=== PATIENT | female | born 1950 | race Caucasian/White ===

== ENCOUNTER 2020-02-21 16:17 | Inpatient (IN) ==
[2020-02-21] MEDS ORDERED: Ondansetron 4 MG/2 ML VIAL IVP PRN (20:03)
[2020-02-21] MEDS ORDERED: Naloxone 0.4 MG/ML INJ IVP PRN (20:03)
[2020-02-21] MEDS ORDERED: Perflutren Lipid Microsphere 1.3 ML in 0.9 % Sodium Chloride 8.7 ML IVP PRN (20:48)
[2020-02-22 01:58] LABS: INR 1.2; Prothrombin Time 13.5 Seconds (9.4-12.1)
[2020-02-22 01:59] LABS: Basophils % 0.7 %; Eosinophils # 0.2 K/mcL (0.0-0.6); Eosinophils % 2.9 %; Hematocrit 40.8 % (35.3-44.9); Hemoglobin 13.4 g/dL (11.5-15.4); Immature Granulocytes % 0.4 % (0-4); Lymphocytes # 1.6 K/mcL (0.6-4.6); Lymphocytes % 29.8 %; Mean Corpuscular HGB Conc 32.8 g/dL (31.6-35.5); Mean Corpuscular Volume 91.3 fL (83.0-100.0); Mean Platelet Volume 9.6 fL (9.4-12.4); Monocytes # 0.6 K/mcL (0.0-1.3); Monocytes % 10.3 %; Platelet Count 256 K/mcL (140-400); Red Blood Count 4.47 M/mcL (3.82-4.97); Red Cell Distribution Width 12.9 % (11.5-14.5); Segmented Neutrophils % 55.9 %; White Blood Count 5.4 K/mcL (4.3-11.1)
[2020-02-22 02:13] LABS: Albumin 3.7 g/dL (3.5-5.7); Albumin/Globulin Ratio 1.4 (1.1-2.2); Bilirubin,Total 0.5 mg/dL (0.3-1.0); Globulin 2.6 g/dL (2.4-3.5); Total Protein 6.3 g/dL (6.4-8.9)
[2020-02-22 02:14] LABS: BUN/Creatinine Ratio 18 (6-26); Blood Urea Nitrogen 14 mg/dL (8-23); Calcium 8.9 mg/dL (8.6-10.3); Carbon Dioxide 28 mEq/L (23-29); Chloride 107 mEq/L (98-107); Glucose 130 mg/dL (70-105); Osmolality,Calculated 292 (280-300); Potassium 3.1 mEq/L (3.5-5.1); Sodium 140 mEq/L (136-145); eGFR For African Americans > 60 (> 60); eGFR For Non-African Americans > 60 (> 60)
[2020-02-22] MEDS: *HR* Heparin 5,000 UNIT/ML VIAL SQ SCH ×2 (04:03→16:52)
[2020-02-22] MEDS ORDERED: Albuterol 2.5 MG/3 ML NEBULIZER IH PRN (08:19)
[2020-02-22] MEDS: lisinopriL 20 MG TABLET PO SCH (10:49)
[2020-02-22] MEDS: Levothyroxine 25 MCG TABLET PO SCH (10:49)
[2020-02-22 11:46] LABS: Albumin 4.2 g/dL (3.5-5.7); Albumin/Globulin Ratio 1.4 (1.1-2.2); Bilirubin,Direct 0.1 mg/dL (0.0-0.2); Bilirubin,Indirect 0.7 mg/dL (0.0-1.0); Bilirubin,Total 0.8 mg/dL (0.3-1.0); Globulin 2.9 g/dL (2.4-3.5); Total Protein 7.1 g/dL (6.4-8.9)
[2020-02-22 16:40] LABS: RBC,Pleural Fluid < 2000 RBC/mcL
[2020-02-22 16:43] LABS: Total Protein,Pleural Fluid 4.6 g/dL
[2020-02-22 18:10] LABS: Appearance of Pleural Fl Clear (Clear)
[2020-02-22 18:18] LABS: Basophils,Pleural Fluid 0 %; Eosinophils,Pleural Fluid 0 %
[2020-02-22] MEDS ORDERED: Gadolinium Contrast Agent (WT Based) IV PRN (18:18)
[2020-02-22] MEDS: cloNIDine HCL 0.1 MG TABLET PO SCH (19:47)
[2020-02-23] MEDS: *HR* Heparin 5,000 UNIT/ML VIAL SQ SCH ×2 (05:31→16:49)
[2020-02-23] MEDS: Levothyroxine 25 MCG TABLET PO SCH (05:31)
[2020-02-23 06:52] LABS: Basophils % 0.9 %; Eosinophils # 0.2 K/mcL (0.0-0.6); Eosinophils % 4.7 %; Hematocrit 41.6 % (35.3-44.9); Hemoglobin 13.5 g/dL (11.5-15.4); Immature Granulocytes % 0.4 % (0-4); Lymphocytes # 1.6 K/mcL (0.6-4.6); Lymphocytes % 35.6 %; Mean Corpuscular HGB Conc 32.5 g/dL (31.6-35.5); Mean Corpuscular Hemoglobin 29.9 pg (28.0-33.3); Mean Corpuscular Volume 92.2 fL (83.0-100.0); Mean Platelet Volume 9.5 fL (9.4-12.4); Monocytes # 0.5 K/mcL (0.0-1.3); Monocytes % 11.1 %; Neutrophils # 2.1 K/mcL (1.6-8.9); Platelet Count 240 K/mcL (140-400); Red Blood Count 4.51 M/mcL (3.82-4.97); Red Cell Distribution Width 12.9 % (11.5-14.5); Segmented Neutrophils % 47.3 %; White Blood Count 4.5 K/mcL (4.3-11.1)
[2020-02-23] MEDS: lisinopriL 20 MG TABLET PO SCH (07:42)
[2020-02-23 09:59] LABS: BUN/Creatinine Ratio 23 (6-26); Blood Urea Nitrogen 16 mg/dL (8-23); Calcium 9.7 mg/dL (8.6-10.3); Carbon Dioxide 28 mEq/L (23-29); Chloride 105 mEq/L (98-107); Glucose 118 mg/dL (70-105); Magnesium 2.2 mg/dL (1.6-2.6); Osmolality,Calculated 290 (280-300); Phosphorous 3.2 mg/dL (2.7-4.5); Potassium 3.5 mEq/L (3.5-5.1); Sodium 139 mEq/L (136-145); eGFR For African Americans > 60 (> 60); eGFR For Non-African Americans > 60 (> 60)
[2020-02-23] MEDS: cloNIDine HCL 0.1 MG TABLET PO SCH (20:11)
[2020-02-24] MEDS: Levothyroxine 25 MCG TABLET PO SCH (05:44)
[2020-02-24] MEDS: *HR* Heparin 5,000 UNIT/ML VIAL SQ SCH ×2 (05:44→17:23)
[2020-02-24] MEDS ORDERED: Gabapentin 300 MG CAPSULE PO PRN (07:49)
[2020-02-24] MEDS: Cyanocobalamin (B-12) 1,000 MCG TABLET PO SCH (08:38)
[2020-02-24] MEDS: lisinopriL 20 MG TABLET PO SCH (08:38)
[2020-02-24] MEDS: cloNIDine HCL 0.1 MG TABLET PO SCH (20:02)
[2020-02-25 03:06] LABS: Basophils # 0.1 K/mcL (0.0-0.2); Basophils % 0.9 %; Eosinophils # 0.2 K/mcL (0.0-0.6); Eosinophils % 3.9 %; Hematocrit 38.6 % (35.3-44.9); Hemoglobin 12.7 g/dL (11.5-15.4); Immature Granulocytes % 0.2 % (0-4); Lymphocytes # 1.8 K/mcL (0.6-4.6); Lymphocytes % 32.8 %; Mean Corpuscular HGB Conc 32.9 g/dL (31.6-35.5); Mean Corpuscular Hemoglobin 30.5 pg (28.0-33.3); Mean Corpuscular Volume 92.8 fL (83.0-100.0); Mean Platelet Volume 9.8 fL (9.4-12.4); Monocytes # 0.5 K/mcL (0.0-1.3); Neutrophils # 2.8 K/mcL (1.6-8.9); Platelet Count 243 K/mcL (140-400); Red Blood Count 4.16 M/mcL (3.82-4.97); Red Cell Distribution Width 12.7 % (11.5-14.5); Segmented Neutrophils % 52.2 %; White Blood Count 5.4 K/mcL (4.3-11.1)
[2020-02-25 03:26] LABS: BUN/Creatinine Ratio 28 (6-26); Blood Urea Nitrogen 16 mg/dL (8-23); Calcium 8.9 mg/dL (8.6-10.3); Carbon Dioxide 25 mEq/L (23-29); Chloride 108 mEq/L (98-107); Glucose 96 mg/dL (70-105); Osmolality,Calculated 291 (280-300); Phosphorous 3.5 mg/dL (2.7-4.5); Potassium 3.7 mEq/L (3.5-5.1); Sodium 140 mEq/L (136-145); eGFR For African Americans > 60 (> 60); eGFR For Non-African Americans > 60 (> 60)
[2020-02-25] MEDS: Levothyroxine 25 MCG TABLET PO SCH (05:47)
[2020-02-25] MEDS: *HR* Heparin 5,000 UNIT/ML VIAL SQ SCH ×2 (05:47→18:00)
[2020-02-25] MEDS: Cyanocobalamin (B-12) 1,000 MCG TABLET PO SCH (07:22)
[2020-02-25 10:49] LABS: Fluid Source for Albumin PLEURAL FLUID
[2020-02-25] MEDS: lisinopriL 20 MG TABLET PO SCH (11:08)
[2020-02-25] MEDS ORDERED: *HR* Rocuronium Bromide 50 MG/5 ML VIAL ONE (11:31)
[2020-02-25] MEDS ORDERED: *HR* FentaNYL (PF) 100 MCG/2 ML VIAL ONE (11:31)
[2020-02-25] MEDS ORDERED: Ondansetron 4 MG/2 ML VIAL ONE (11:31)
[2020-02-25] MEDS ORDERED: Lidocaine -MPF 2% 2 ML VIAL ONE (11:31)
[2020-02-25] MEDS ORDERED: *HR* Propofol 200 MG/20 ML VIAL IVP ONE (11:31)
[2020-02-25] MEDS ORDERED: Dexamethasone 4 MG/ML VIAL ONE (11:31)
[2020-02-25] MEDS ORDERED: Lidocaine -MPF 4% 5 ML AMPUL ONE (11:44)
[2020-02-25] MEDS ORDERED: Lidocaine Jelly 6ml 1 APPL/6 ML JEL.PF.APP ONE (11:44)
[2020-02-25] MEDS ORDERED: CeFAZolin 2 GM/120 ML BAG IVPB ONE (12:22)
[2020-02-25] MEDS ORDERED: *HR* OxyCODONE Immed Rel 5 MG TABLET PO PRN (12:36)
[2020-02-25] MEDS ORDERED: Ondansetron 4 MG/2 ML VIAL IVP ONE (12:36)
[2020-02-25] MEDS ORDERED: *HR* PHENYLEPHRINE 1,000 MCG/10 ML SYRINGE IVP ONE (12:51)
[2020-02-25] MEDS ORDERED: *HR* HYDROMORPHONE 2 MG/ML VIAL ONE (12:58)
[2020-02-25] MEDS: *HR* HYDROmorphone PF 0.5 MG/0.5 ML SYRINGE IVP PRN ×2 (13:42→13:51)
[2020-02-25] MEDS ORDERED: Ringers Solution, Lactated 1,000 ML ONE (14:05)
[2020-02-25] MEDS ORDERED: Naloxone 0.4 MG/ML INJ IVP PRN (14:27)
[2020-02-25] MEDS ORDERED: Ondansetron 4 MG/2 ML VIAL IVP PRN (14:27)
[2020-02-25] MEDS ORDERED: Albuterol 2.5 MG/3 ML NEBULIZER IH PRN (14:27)
[2020-02-25] MEDS: Gabapentin 300 MG CAPSULE PO SCH ×2 (15:58→20:29)
[2020-02-25] MEDS: *HR* HYDROcodone/Acet 5/325 mg TABLET PO PRN (18:00)
[2020-02-25] MEDS ORDERED: cloNIDine HCL 0.1 MG TABLET PO SCH (21:00)
[2020-02-26] MEDS ORDERED: Levothyroxine 25 MCG TABLET PO SCH (06:30)
[2020-02-26] MEDS: *HR* Heparin 5,000 UNIT/ML VIAL SQ SCH (06:50)
[2020-02-26] MEDS: *HR* HYDROcodone/Acet 5/325 mg TABLET PO PRN (07:47)
[2020-02-26] MEDS: Gabapentin 300 MG CAPSULE PO SCH (07:47)
[2020-02-26] MEDS ORDERED: lisinopriL 20 MG TABLET PO SCH (09:00)
[2020-02-26] MEDS ORDERED: Cyanocobalamin (B-12) 1,000 MCG TABLET PO SCH (09:00)
[2020-02-26 11:27] VITALS: BP 89/59
[2020-02-27 08:41] LABS: Cancer Antigen-Breast (CA 15-3 29 U/mL (0-31); Cancer Antigen-GI (CA 19-9) 6 U/mL (0-37)
== END 2020-02-26 16:30 | disposition home health service (06) | DRG 167 ==
LOC: 2ANU → SUATTDRO 19:38 → 2ANU 02-23 17:13 → 2NNU 02-25 15:03
PROVIDERS: ADMIT Internal Medicine; ATTEND Internal Medicine

== ENCOUNTER 2020-06-19 06:07 | Inpatient (IN) ==
[~2020-06-19 06:07] MED LIST: Famotidine 20 MG/2 ML VIAL IVP ONE
[2020-06-19] MEDS ORDERED: CeFAZolin Syr 2,000MG/20 ML 2,000 MG/20 ML SYRINGE IVPB ONE (06:26)
[2020-06-19] MEDS ORDERED: Ringers Solution, Lactated 1,000 ML IVC SCH (06:30)
[2020-06-19] MEDS ORDERED: 0.9 % Sodium Chloride 250 ML IVC SCH (07:00)
[2020-06-19] MEDS ORDERED: 0.9 % Sodium Chloride 1,000 ML IVC ONE (07:00)
[2020-06-19] MEDS ORDERED: *HR* Propofol 200 MG/20 ML VIAL IVP ONE (07:03)
[2020-06-19] MEDS ORDERED: *HR* FentaNYL (PF) 100 MCG/2 ML VIAL ONE ×2 (07:03→11:09)
[2020-06-19] MEDS ORDERED: EPHEDrine 50 MG/ML VIAL ONE (07:06)
[2020-06-19] MEDS ORDERED: *HR* Succinylcholine 200 MG/10 ML VIAL IVP ONE (07:07)
[2020-06-19] MEDS ORDERED: Lidocaine -MPF 2% 2 ML VIAL ONE (07:07)
[2020-06-19] MEDS ORDERED: Dexamethasone 4 MG/ML VIAL ONE (07:07)
[2020-06-19] MEDS ORDERED: Ondansetron 4 MG/2 ML VIAL ONE (07:07)
[2020-06-19] MEDS ORDERED: *HR* Rocuronium Bromide 50 MG/5 ML VIAL ONE ×2 (07:07→08:55)
[2020-06-19] MEDS ORDERED: Lidocaine HCL 4 ML Topical Solution (Laryng-O-Jet Kit Sterile Pak) TP ONE (07:07)
[2020-06-19] MEDS ORDERED: Heparin 1,000 UNITS/500 mL 500 ML ONE (07:19)
[2020-06-19] MEDS ORDERED: *HR* Phenylephrine 10 MG/ML VIAL ONE (07:20)
[2020-06-19] MEDS ORDERED: *HR* Vasopressin 20 UNIT/ML VIAL ONE (07:26)
[2020-06-19] MEDS ORDERED: Albumin Human 5% 25.0 GM/500 ML IV.SOLN ONE ×2 (07:26→10:02)
[2020-06-19] MEDS ORDERED: *HR* Norepinephrine 4 MG/4 ML VIAL IVC ONE (07:26)
[2020-06-19] MEDS ORDERED: Naloxone 0.4 MG/ML INJ IVP PRN ×2 (07:46→12:15)
[2020-06-19] MEDS ORDERED: Nitroglycerin 0.4 MG TAB.SUBL SL PRN (07:46)
[2020-06-19] MEDS ORDERED: *HR* HYDROmorphone PF 0.5 MG/0.5 ML SYRINGE IVP PRN (07:46)
[2020-06-19] MEDS ORDERED: *HR* FentaNYL (PF) 100 MCG/2 ML VIAL IVP PRN (07:46)
[2020-06-19] MEDS ORDERED: Albuterol 2.5 MG/3 ML NEBULIZER IH PRN (07:46)
[2020-06-19] MEDS ORDERED: *HR* PHENYLEPHRINE 1,000 MCG/10 ML SYRINGE IVP ONE (07:49)
[2020-06-19] MEDS ORDERED: Tranexamic Acid 1,000 MG/10 ML VIAL ONE (09:47)
[2020-06-19 10:47] LABS: ABG Base Excess -2 mEq/L (-2 to 3); ABG Chloride 106 mEq/L (98-107); ABG Glucose 155 mg/dL (60-95); ABG HCO3 23 mEq/L (21-27); ABG Ionized Calcium 0.99 mmol/L (1.15-1.35); ABG Oxygen Saturation 100 % (95-98); ABG PCO2 39 mmHg (35-45); ABG PH 7.39 pH Units (7.32-7.45); ABG PO2 255 mmHg (85-104); ABG TCO2 24 mEq/L (20-26)
[2020-06-19 11:09] LABS: INR 1.3; Prothrombin Time 14.8 Seconds (9.4-12.1)
[2020-06-19 11:11] LABS: Activated Partial Thrombo Time 29.4 Seconds (26.0-36.0)
[2020-06-19 11:13] LABS: Basophils # 0.1 K/mcL (0.0-0.2); Basophils % 0.5 %; Eosinophils % 0.1 %; Hematocrit 22.3 % (35.3-44.9); Immature Granulocytes % 0.5 % (0-4); Lymphocytes # 1.1 K/mcL (0.6-4.6); Lymphocytes % 9.4 %; Mean Corpuscular HGB Conc 33.6 g/dL (31.6-35.5); Mean Corpuscular Hemoglobin 32.9 pg (28.0-33.3); Mean Corpuscular Volume 97.8 fL (83.0-100.0); Mean Platelet Volume 9.2 fL (9.4-12.4); Monocytes # 0.4 K/mcL (0.0-1.3); Monocytes % 3.2 %; Neutrophils # 10.3 K/mcL (1.6-8.9); Platelet Count 197 K/mcL (140-400); Red Blood Count 2.28 M/mcL (3.82-4.97); Red Cell Distribution Width 16.6 % (11.5-14.5); Segmented Neutrophils % 86.3 %
[2020-06-19 11:17] LABS: Hemoglobin 7.5 g/dL (11.5-15.4); White Blood Count 11.9 K/mcL (4.3-11.1)
[2020-06-19] MEDS ORDERED: Ketorolac 15 MG/ML VIAL IVP SCH (12:15)
[2020-06-19] MEDS ORDERED: Ondansetron 4 MG/2 ML VIAL IVP PRN (12:15)
[2020-06-19] MEDS: 0.9 % Sodium Chloride 1,000 ML IVC SCH (13:00)
[2020-06-19] MEDS: *HR* HYDROcodone/Acet 7.5/325 mg TABLET PO PRN ×2 (13:13→20:35)
[2020-06-19] MEDS: Ipratropium/Albuterol Neb 3 ML IH SCH ×4 (16:30→23:18)
[2020-06-19] MEDS: *HR* Heparin 5,000 UNIT/ML VIAL SQ SCH ×2 (16:42→20:35)
[2020-06-19] MEDS: Gabapentin 300 MG CAPSULE PO SCH ×2 (16:43→20:34)
[2020-06-19 16:57] LABS: Hematocrit 27.5 % (35.3-44.9); Mean Corpuscular HGB Conc 33.1 g/dL (31.6-35.5); Mean Corpuscular Hemoglobin 30.7 pg (28.0-33.3); Mean Corpuscular Volume 92.9 fL (83.0-100.0); Mean Platelet Volume 9.3 fL (9.4-12.4); Platelet Count 148 K/mcL (140-400); Red Blood Count 2.96 M/mcL (3.82-4.97); Red Cell Distribution Width 18.7 % (11.5-14.5); White Blood Count 10.1 K/mcL (4.3-11.1)
[2020-06-19 17:08] LABS: Hemoglobin 9.1 g/dL (11.5-15.4)
[2020-06-19 17:17] LABS: BUN/Creatinine Ratio 15 (6-26); Blood Urea Nitrogen 9 mg/dL (8-23); Calcium 6.6 mg/dL (8.6-10.3); Carbon Dioxide 17 mEq/L (23-29); Chloride 114 mEq/L (98-107); Glucose 159 mg/dL (70-105); Magnesium 1.5 mg/dL (1.6-2.6); Osmolality,Calculated 304 (280-300); Phosphorous 10.1 mg/dL (2.7-4.5); Potassium 3.1 mEq/L (3.5-5.1); Sodium 146 mEq/L (136-145); eGFR For African Americans > 60 (> 60); eGFR For Non-African Americans > 60 (> 60)
[2020-06-19] MEDS: Ketorolac 15 MG/ML VIAL IVP SCH (18:33)
[2020-06-19] MEDS: Famotidine 20 MG TABLET PO SCH (20:34)
[2020-06-19] MEDS: Sennosides/Docusate Sodium TABLET PO SCH (20:34)
[2020-06-19] MEDS ORDERED: cloNIDine HCL 0.1 MG TABLET PO SCH (21:00)
[2020-06-20] MEDS: Ketorolac 15 MG/ML VIAL IVP SCH ×4 (00:53→18:19)
[2020-06-20] MEDS: 0.9 % Sodium Chloride 1,000 ML IVC SCH ×2 (01:49→17:08)
[2020-06-20] MEDS: Ipratropium/Albuterol Neb 3 ML IH SCH ×2 (03:11→07:22)
[2020-06-20] MEDS: *HR* HYDROcodone/Acet 7.5/325 mg TABLET PO PRN (03:45)
[2020-06-20 04:26] LABS: Albumin 3.2 g/dL (3.5-5.7); Bilirubin,Direct 0.2 mg/dL (0.0-0.2); Bilirubin,Indirect 0.4 mg/dL (0.0-1.0); Bilirubin,Total 0.6 mg/dL (0.3-1.0); Globulin 1.6 g/dL (2.4-3.5); Total Protein 4.8 g/dL (6.4-8.9)
[2020-06-20 04:55] LABS: BUN/Creatinine Ratio 16 (6-26); Blood Urea Nitrogen 10 mg/dL (8-23); Calcium 7.7 mg/dL (8.6-10.3); Carbon Dioxide 22 mEq/L (23-29); Chloride 110 mEq/L (98-107); Glucose 147 mg/dL (70-105); Magnesium 2.6 mg/dL (1.6-2.6); Osmolality,Calculated 286 (280-300); Phosphorous 2.8 mg/dL (2.7-4.5); Sodium 137 mEq/L (136-145); eGFR For African Americans > 60 (> 60); eGFR For Non-African Americans > 60 (> 60)
[2020-06-20] MEDS: *HR* Heparin 5,000 UNIT/ML VIAL SQ SCH ×3 (06:50→21:00)
[2020-06-20] MEDS ORDERED: Levothyroxine 25 MCG TABLET PO SCH (07:30)
[2020-06-20] MEDS: Sennosides/Docusate Sodium TABLET PO SCH ×2 (08:03→20:01)
[2020-06-20] MEDS: Gabapentin 300 MG CAPSULE PO SCH ×3 (08:03→20:05)
[2020-06-20] MEDS: Famotidine 20 MG TABLET PO SCH ×2 (08:03→20:02)
[2020-06-20] MEDS ORDERED: Naloxone 0.4 MG/ML INJ IVP PRN (11:56)
[2020-06-20] MEDS ORDERED: Ondansetron 4 MG/2 ML VIAL IVP PRN (11:56)
[2020-06-20] MEDS ORDERED: *HR* HYDROcodone/Acet 7.5/325 mg TABLET PO PRN (11:56)
[2020-06-20 14:38] LABS: Basophils % 0.4 %; Hematocrit 27.3 % (35.3-44.9); Hemoglobin 8.9 g/dL (11.5-15.4); Immature Granulocytes % 0.4 % (0-4); Lymphocytes # 0.9 K/mcL (0.6-4.6); Lymphocytes % 7.8 %; Mean Corpuscular HGB Conc 32.6 g/dL (31.6-35.5); Mean Corpuscular Hemoglobin 30.7 pg (28.0-33.3); Mean Corpuscular Volume 94.1 fL (83.0-100.0); Mean Platelet Volume 9.9 fL (9.4-12.4); Monocytes # 1.2 K/mcL (0.0-1.3); Monocytes % 10.6 %; Neutrophils # 9.1 K/mcL (1.6-8.9); Platelet Count 169 K/mcL (140-400); Red Cell Distribution Width 20.2 % (11.5-14.5); Segmented Neutrophils % 80.8 %; White Blood Count 11.3 K/mcL (4.3-11.1)
[2020-06-20] MEDS: cloNIDine HCL 0.1 MG TABLET PO SCH (20:02)
[2020-06-21] MEDS: Ketorolac 15 MG/ML VIAL IVP SCH ×5 (00:58→23:03)
[2020-06-21] MEDS: 0.9 % Sodium Chloride 1,000 ML IVC SCH ×3 (00:59→23:05)
[2020-06-21] MEDS: Levothyroxine 25 MCG TABLET PO SCH (05:31)
[2020-06-21] MEDS: *HR* Heparin 5,000 UNIT/ML VIAL SQ SCH ×3 (05:31→20:00)
[2020-06-21] MEDS: Famotidine 20 MG TABLET PO SCH ×2 (08:16→20:01)
[2020-06-21] MEDS: Sennosides/Docusate Sodium TABLET PO SCH ×2 (08:16→20:00)
[2020-06-21] MEDS: Gabapentin 300 MG CAPSULE PO SCH ×3 (08:16→20:01)
[2020-06-21 09:29] LABS: Hematocrit 28.3 % (35.3-44.9); Hemoglobin 8.9 g/dL (11.5-15.4); Mean Corpuscular HGB Conc 31.4 g/dL (31.6-35.5); Mean Corpuscular Hemoglobin 30.7 pg (28.0-33.3); Mean Corpuscular Volume 97.6 fL (83.0-100.0); Mean Platelet Volume 9.9 fL (9.4-12.4); Platelet Count 177 K/mcL (140-400); Red Cell Distribution Width 20.3 % (11.5-14.5); White Blood Count 10.2 K/mcL (4.3-11.1)
[2020-06-21 09:49] LABS: % Iron Saturation 15 % (15-50); BUN/Creatinine Ratio 23 (6-26); Blood Urea Nitrogen 15 mg/dL (8-23); Calcium 8.1 mg/dL (8.6-10.3); Carbon Dioxide 23 mEq/L (23-29); Chloride 108 mEq/L (98-107); Glucose 97 mg/dL (70-105); Iron 25 mcg/dL (50-170); Osmolality,Calculated 281 (280-300); Potassium 3.6 mEq/L (3.5-5.1); Sodium 135 mEq/L (136-145); Transferrin 119 mg/dL (203-362); eGFR For African Americans > 60 (> 60); eGFR For Non-African Americans > 60 (> 60)
[2020-06-21] MEDS: cloNIDine HCL 0.1 MG TABLET PO SCH (20:01)
[2020-06-22] MEDS: *HR* Heparin 5,000 UNIT/ML VIAL SQ SCH ×3 (06:00→21:08)
[2020-06-22] MEDS: Levothyroxine 25 MCG TABLET PO SCH (06:01)
[2020-06-22] MEDS: Ketorolac 15 MG/ML VIAL IVP SCH ×4 (06:01→23:24)
[2020-06-22] MEDS: Gabapentin 300 MG CAPSULE PO SCH ×2 (08:43→19:17)
[2020-06-22] MEDS: Sennosides/Docusate Sodium TABLET PO SCH ×2 (08:43→20:18)
[2020-06-22] MEDS: Famotidine 20 MG TABLET PO SCH ×2 (08:43→20:18)
[2020-06-22] MEDS: 0.9 % Sodium Chloride 1,000 ML IVC SCH (13:21)
[2020-06-22] MEDS ORDERED: Gabapentin 300 MG CAPSULE PO PRN (15:07)
[2020-06-22] MEDS: cloNIDine HCL 0.1 MG TABLET PO SCH (20:18)
[2020-06-23] MEDS: 0.9 % Sodium Chloride 1,000 ML IVC SCH (04:51)
[2020-06-23 05:46] LABS: Basophils % 0.6 %; Eosinophils # 0.1 K/mcL (0.0-0.6); Eosinophils % 1.2 %; Hematocrit 23.5 % (35.3-44.9); Hemoglobin 7.7 g/dL (11.5-15.4); Lymphocytes # 1.1 K/mcL (0.6-4.6); Mean Corpuscular HGB Conc 32.8 g/dL (31.6-35.5); Mean Corpuscular Hemoglobin 31.6 pg (28.0-33.3); Mean Corpuscular Volume 96.3 fL (83.0-100.0); Mean Platelet Volume 9.5 fL (9.4-12.4); Monocytes # 0.5 K/mcL (0.0-1.3); Monocytes % 9.6 %; Neutrophils # 3.2 K/mcL (1.6-8.9); Platelet Count 186 K/mcL (140-400); Red Blood Count 2.44 M/mcL (3.82-4.97); Red Cell Distribution Width 19.2 % (11.5-14.5); Segmented Neutrophils % 65.6 %; White Blood Count 4.9 K/mcL (4.3-11.1)
[2020-06-23] MEDS: *HR* Heparin 5,000 UNIT/ML VIAL SQ SCH ×3 (06:06→21:33)
[2020-06-23] MEDS: Ketorolac 15 MG/ML VIAL IVP SCH ×4 (06:06→19:46)
[2020-06-23 06:07] LABS: BUN/Creatinine Ratio 16 (6-26); Blood Urea Nitrogen 11 mg/dL (8-23); Calcium 7.9 mg/dL (8.6-10.3); Carbon Dioxide 22 mEq/L (23-29); Chloride 112 mEq/L (98-107); Glucose 101 mg/dL (70-105); Magnesium 1.9 mg/dL (1.6-2.6); Osmolality,Calculated 288 (280-300); Potassium 3.8 mEq/L (3.5-5.1); Sodium 139 mEq/L (136-145); eGFR For African Americans > 60 (> 60); eGFR For Non-African Americans > 60 (> 60)
[2020-06-23] MEDS: Levothyroxine 25 MCG TABLET PO SCH (06:07)
[2020-06-23] MEDS: Famotidine 20 MG TABLET PO SCH ×2 (08:19→21:33)
[2020-06-23] MEDS: Sennosides/Docusate Sodium TABLET PO SCH ×2 (08:19→21:33)
[2020-06-23] MEDS ORDERED: Naloxone 0.4 MG/ML INJ IVP PRN (12:21)
[2020-06-23] MEDS ORDERED: Ondansetron 4 MG/2 ML VIAL IVP PRN (12:21)
[2020-06-23] MEDS: *HR* HYDROcodone/Acet 7.5/325 mg TABLET PO PRN (13:54)
[2020-06-23] MEDS: Gabapentin 300 MG CAPSULE PO SCH ×2 (14:02→21:33)
[2020-06-23] MEDS ORDERED: Gabapentin 300 MG CAPSULE PO SCH (15:00)
[2020-06-23] MEDS: cloNIDine HCL 0.1 MG TABLET PO SCH (21:33)
[2020-06-24] MEDS: Ketorolac 15 MG/ML VIAL IVP SCH ×4 (00:04→17:28)
[2020-06-24 05:21] LABS: Hematocrit 25.4 % (35.3-44.9); Hemoglobin 7.9 g/dL (11.5-15.4); Mean Corpuscular HGB Conc 31.1 g/dL (31.6-35.5); Mean Corpuscular Hemoglobin 30.5 pg (28.0-33.3); Mean Corpuscular Volume 98.1 fL (83.0-100.0); Mean Platelet Volume 9.6 fL (9.4-12.4); Platelet Count 205 K/mcL (140-400); Red Blood Count 2.59 M/mcL (3.82-4.97); Red Cell Distribution Width 18.8 % (11.5-14.5); White Blood Count 5.3 K/mcL (4.3-11.1)
[2020-06-24] MEDS: *HR* Heparin 5,000 UNIT/ML VIAL SQ SCH ×3 (05:42→21:14)
[2020-06-24] MEDS: Levothyroxine 25 MCG TABLET PO SCH (05:43)
[2020-06-24 05:44] LABS: % Iron Saturation 25 % (15-50); BUN/Creatinine Ratio 12 (6-26); Blood Urea Nitrogen 8 mg/dL (8-23); Calcium 8.5 mg/dL (8.6-10.3); Carbon Dioxide 24 mEq/L (23-29); Chloride 111 mEq/L (98-107); Glucose 95 mg/dL (70-105); Iron 43 mcg/dL (50-170); Magnesium 1.8 mg/dL (1.6-2.6); Osmolality,Calculated 288 (280-300); Potassium 3.9 mEq/L (3.5-5.1); Sodium 140 mEq/L (136-145); Transferrin 123 mg/dL (203-362); eGFR For African Americans > 60 (> 60); eGFR For Non-African Americans > 60 (> 60)
[2020-06-24] MEDS: Famotidine 20 MG TABLET PO SCH ×2 (07:59→21:12)
[2020-06-24] MEDS: Sennosides/Docusate Sodium TABLET PO SCH ×2 (07:59→21:11)
[2020-06-24] MEDS: Gabapentin 300 MG CAPSULE PO SCH ×3 (07:59→21:12)
[2020-06-24] MEDS ORDERED: Folic Acid 1 MG in 0.9 % Sodium Chloride 50 ML IVPB ONE (11:46)
[2020-06-24] MEDS ORDERED: Iron Sucrose Complex 400 MG in 0.9 % Sodium Chloride 250 ML IVPB ONE (11:46)
[2020-06-24] MEDS ORDERED: Thiamine (B-1) 100 MG in 0.9 % Sodium Chloride 50 ML IVPB ONE (11:46)
[2020-06-24] MEDS ORDERED: Furosemide 20 MG/2 ML VIAL IVP ONE (12:05)
[2020-06-24] MEDS: cloNIDine HCL 0.1 MG TABLET PO SCH (21:12)
[2020-06-25] MEDS: Ketorolac 15 MG/ML VIAL IVP SCH ×4 (00:07→18:56)
[2020-06-25 02:49] LABS: Hemoglobin 7.7 g/dL (11.5-15.4); Mean Corpuscular HGB Conc 32.1 g/dL (31.6-35.5); Mean Corpuscular Hemoglobin 30.9 pg (28.0-33.3); Mean Corpuscular Volume 96.4 fL (83.0-100.0); Mean Platelet Volume 9.8 fL (9.4-12.4); Platelet Count 206 K/mcL (140-400); Red Blood Count 2.49 M/mcL (3.82-4.97); Red Cell Distribution Width 18.6 % (11.5-14.5); White Blood Count 5.8 K/mcL (4.3-11.1)
[2020-06-25 03:04] LABS: BUN/Creatinine Ratio 15 (6-26); Blood Urea Nitrogen 10 mg/dL (8-23); Calcium 8.2 mg/dL (8.6-10.3); Carbon Dioxide 24 mEq/L (23-29); Chloride 108 mEq/L (98-107); Glucose 103 mg/dL (70-105); Magnesium 1.9 mg/dL (1.6-2.6); Osmolality,Calculated 287 (280-300); Phosphorous 3.4 mg/dL (2.7-4.5); Potassium 3.5 mEq/L (3.5-5.1); Sodium 139 mEq/L (136-145); eGFR For African Americans > 60 (> 60); eGFR For Non-African Americans > 60 (> 60)
[2020-06-25] MEDS: *HR* Heparin 5,000 UNIT/ML VIAL SQ SCH ×3 (05:41→21:26)
[2020-06-25] MEDS: Levothyroxine 25 MCG TABLET PO SCH (05:41)
[2020-06-25] MEDS: Gabapentin 300 MG CAPSULE PO SCH ×3 (08:12→21:26)
[2020-06-25] MEDS: Famotidine 20 MG TABLET PO SCH ×2 (08:12→21:25)
[2020-06-25] MEDS: Sennosides/Docusate Sodium TABLET PO SCH ×2 (08:12→21:26)
[2020-06-25] MEDS: *HR* HYDROcodone/Acet 7.5/325 mg TABLET PO PRN (21:25)
[2020-06-25] MEDS: cloNIDine HCL 0.1 MG TABLET PO SCH (21:26)
[2020-06-26] MEDS: Ketorolac 15 MG/ML VIAL IVP SCH ×4 (00:07→17:20)
[2020-06-26] MEDS: *HR* HYDROcodone/Acet 7.5/325 mg TABLET PO PRN ×4 (03:34→22:10)
[2020-06-26] MEDS: *HR* Heparin 5,000 UNIT/ML VIAL SQ SCH ×3 (05:23→20:07)
[2020-06-26] MEDS: Levothyroxine 25 MCG TABLET PO SCH (05:24)
[2020-06-26] MEDS: Famotidine 20 MG TABLET PO SCH ×2 (08:26→20:07)
[2020-06-26] MEDS: Sennosides/Docusate Sodium TABLET PO SCH ×2 (08:26→20:07)
[2020-06-26] MEDS: Gabapentin 300 MG CAPSULE PO SCH ×3 (08:26→20:07)
[2020-06-26] MEDS ORDERED: Furosemide 20 MG TABLET PO ONE (11:30)
[2020-06-26] MEDS: cloNIDine HCL 0.1 MG TABLET PO SCH (20:07)
[2020-06-27] MEDS: Ketorolac 15 MG/ML VIAL IVP SCH ×4 (00:52→16:23)
[2020-06-27] MEDS: *HR* HYDROcodone/Acet 7.5/325 mg TABLET PO PRN ×4 (02:59→21:37)
[2020-06-27] MEDS: *HR* Heparin 5,000 UNIT/ML VIAL SQ SCH ×3 (06:11→21:37)
[2020-06-27] MEDS: Levothyroxine 25 MCG TABLET PO SCH (06:12)
[2020-06-27 06:40] LABS: Hematocrit 26.4 % (35.3-44.9); Hemoglobin 8.1 g/dL (11.5-15.4); Mean Corpuscular HGB Conc 30.7 g/dL (31.6-35.5); Mean Corpuscular Hemoglobin 30.9 pg (28.0-33.3); Mean Corpuscular Volume 100.8 fL (83.0-100.0); Mean Platelet Volume 9.6 fL (9.4-12.4); Platelet Count 222 K/mcL (140-400); Red Blood Count 2.62 M/mcL (3.82-4.97); Red Cell Distribution Width 19.1 % (11.5-14.5)
[2020-06-27 06:58] LABS: BUN/Creatinine Ratio 17 (6-26); Blood Urea Nitrogen 12 mg/dL (8-23); Calcium 8.6 mg/dL (8.6-10.3); Carbon Dioxide 29 mEq/L (23-29); Chloride 104 mEq/L (98-107); Glucose 98 mg/dL (70-105); Osmolality,Calculated 282 (280-300); Phosphorous 3.8 mg/dL (2.7-4.5); Potassium 4.1 mEq/L (3.5-5.1); Sodium 136 mEq/L (136-145); eGFR For African Americans > 60 (> 60); eGFR For Non-African Americans > 60 (> 60)
[2020-06-27] MEDS: Famotidine 20 MG TABLET PO SCH ×2 (07:41→21:36)
[2020-06-27] MEDS: Gabapentin 300 MG CAPSULE PO SCH ×3 (07:41→21:37)
[2020-06-27] MEDS: Sennosides/Docusate Sodium TABLET PO SCH ×2 (07:41→21:36)
[2020-06-27] MEDS: cloNIDine HCL 0.1 MG TABLET PO SCH (21:36)
[2020-06-28] MEDS: Ketorolac 15 MG/ML VIAL IVP SCH ×2 (00:37→04:38)
[2020-06-28] MEDS: Levothyroxine 25 MCG TABLET PO SCH (04:37)
[2020-06-28] MEDS: *HR* HYDROcodone/Acet 7.5/325 mg TABLET PO PRN ×4 (04:37→20:19)
[2020-06-28] MEDS: *HR* Heparin 5,000 UNIT/ML VIAL SQ SCH ×3 (04:38→20:19)
[2020-06-28] MEDS: Gabapentin 300 MG CAPSULE PO SCH ×3 (07:54→20:19)
[2020-06-28] MEDS: Famotidine 20 MG TABLET PO SCH ×2 (07:54→20:19)
[2020-06-28] MEDS: Sennosides/Docusate Sodium TABLET PO SCH ×2 (07:54→20:18)
[2020-06-28] MEDS: cloNIDine HCL 0.1 MG TABLET PO SCH (20:19)
[2020-06-29] MEDS: *HR* HYDROcodone/Acet 7.5/325 mg TABLET PO PRN ×4 (00:56→20:39)
[2020-06-29] MEDS: *HR* Heparin 5,000 UNIT/ML VIAL SQ SCH ×3 (06:15→20:40)
[2020-06-29] MEDS: Levothyroxine 25 MCG TABLET PO SCH (06:16)
[2020-06-29] MEDS: Famotidine 20 MG TABLET PO SCH ×2 (07:32→20:40)
[2020-06-29] MEDS: Sennosides/Docusate Sodium TABLET PO SCH ×2 (07:32→20:39)
[2020-06-29] MEDS: Gabapentin 300 MG CAPSULE PO SCH ×3 (07:32→20:40)
[2020-06-29] MEDS: cloNIDine HCL 0.1 MG TABLET PO SCH (20:39)
[2020-06-29 22:43] LABS: BUN/Creatinine Ratio 19 (6-26); Blood Urea Nitrogen 13 mg/dL (8-23); Calcium 8.6 mg/dL (8.6-10.3); Carbon Dioxide 27 mEq/L (23-29); Chloride 102 mEq/L (98-107); Glucose 96 mg/dL (70-105); Osmolality,Calculated 282 (280-300); Potassium 3.7 mEq/L (3.5-5.1); Sodium 136 mEq/L (136-145); eGFR For African Americans > 60 (> 60); eGFR For Non-African Americans > 60 (> 60)
[2020-06-30] MEDS: Metoprolol XL (24 HR) Succ 25 MG TAB.ER.24H PO SCH ×2 (00:05→09:24)
[2020-06-30] MEDS: *HR* HYDROcodone/Acet 7.5/325 mg TABLET PO PRN ×4 (01:16→14:07)
[2020-06-30] MEDS: Levothyroxine 25 MCG TABLET PO SCH (05:35)
[2020-06-30] MEDS: *HR* Heparin 5,000 UNIT/ML VIAL SQ SCH ×3 (05:35→21:10)
[2020-06-30] MEDS: Gabapentin 300 MG CAPSULE PO SCH ×3 (09:24→21:10)
[2020-06-30] MEDS: Famotidine 20 MG TABLET PO SCH ×2 (09:25→21:10)
[2020-06-30] MEDS: Sennosides/Docusate Sodium TABLET PO SCH ×2 (09:26→21:10)
[2020-06-30] MEDS: cloNIDine HCL 0.1 MG TABLET PO SCH (21:10)
[2020-06-30] MEDS: *HR* Amiodarone 200 MG TABLET PO SCH (23:49)
[2020-07-01 02:28] LABS: Hemoglobin 9.1 g/dL (11.5-15.4); Mean Corpuscular HGB Conc 32.5 g/dL (31.6-35.5); Mean Corpuscular Hemoglobin 32.3 pg (28.0-33.3); Mean Corpuscular Volume 99.3 fL (83.0-100.0); Mean Platelet Volume 10.1 fL (9.4-12.4); Platelet Count 268 K/mcL (140-400); Red Blood Count 2.82 M/mcL (3.82-4.97); Red Cell Distribution Width 18.6 % (11.5-14.5); White Blood Count 7.1 K/mcL (4.3-11.1)
[2020-07-01 02:42] LABS: BUN/Creatinine Ratio 16 (6-26); Blood Urea Nitrogen 11 mg/dL (8-23); Carbon Dioxide 27 mEq/L (23-29); Chloride 103 mEq/L (98-107); Glucose 100 mg/dL (70-105); Osmolality,Calculated 281 (280-300); Potassium 3.8 mEq/L (3.5-5.1); Sodium 136 mEq/L (136-145); eGFR For African Americans > 60 (> 60); eGFR For Non-African Americans > 60 (> 60)
[2020-07-01] MEDS: *HR* HYDROcodone/Acet 7.5/325 mg TABLET PO PRN ×3 (04:13→21:29)
[2020-07-01] MEDS: *HR* Heparin 5,000 UNIT/ML VIAL SQ SCH ×3 (06:15→21:28)
[2020-07-01] MEDS: Levothyroxine 25 MCG TABLET PO SCH (06:16)
[2020-07-01] MEDS: Sennosides/Docusate Sodium TABLET PO SCH ×2 (08:45→21:29)
[2020-07-01] MEDS: Famotidine 20 MG TABLET PO SCH ×2 (08:45→21:29)
[2020-07-01] MEDS: Gabapentin 300 MG CAPSULE PO SCH ×3 (08:46→21:29)
[2020-07-01] MEDS: *HR* Amiodarone 200 MG TABLET PO SCH ×2 (08:46→21:29)
[2020-07-01] MEDS: Metoprolol XL (24 HR) Succ 25 MG TAB.ER.24H PO SCH (08:46)
[2020-07-01 11:24] LABS: Hematocrit 29.8 % (35.3-44.9); Hemoglobin 9.6 g/dL (11.5-15.4); Mean Corpuscular HGB Conc 32.2 g/dL (31.6-35.5); Mean Corpuscular Hemoglobin 31.6 pg (28.0-33.3); Mean Platelet Volume 9.6 fL (9.4-12.4); Platelet Count 270 K/mcL (140-400); Red Blood Count 3.04 M/mcL (3.82-4.97); Red Cell Distribution Width 18.7 % (11.5-14.5); White Blood Count 7.8 K/mcL (4.3-11.1)
[2020-07-01 16:54] LABS: Hematocrit 28.3 % (35.3-44.9); Hemoglobin 9.2 g/dL (11.5-15.4); Mean Corpuscular HGB Conc 32.5 g/dL (31.6-35.5); Mean Corpuscular Hemoglobin 32.5 pg (28.0-33.3); Mean Platelet Volume 9.7 fL (9.4-12.4); Platelet Count 256 K/mcL (140-400); Red Blood Count 2.83 M/mcL (3.82-4.97); Red Cell Distribution Width 18.5 % (11.5-14.5); White Blood Count 6.5 K/mcL (4.3-11.1)
[2020-07-01] MEDS: cloNIDine HCL 0.1 MG TABLET PO SCH (21:29)
[2020-07-02] MEDS: *HR* HYDROcodone/Acet 7.5/325 mg TABLET PO PRN ×2 (04:42→10:10)
[2020-07-02] MEDS: Levothyroxine 25 MCG TABLET PO SCH (04:42)
[2020-07-02] MEDS: *HR* Heparin 5,000 UNIT/ML VIAL SQ SCH (04:42)
[2020-07-02 07:56] VITALS: BP 112/73
[2020-07-02] MEDS: Sennosides/Docusate Sodium TABLET PO SCH (07:57)
[2020-07-02] MEDS: Famotidine 20 MG TABLET PO SCH (07:57)
[2020-07-02] MEDS: Gabapentin 300 MG CAPSULE PO SCH (07:57)
[2020-07-02] MEDS: *HR* Amiodarone 200 MG TABLET PO SCH (07:57)
[2020-07-02] MEDS ORDERED: Metoprolol XL (24 HR) Succ 25 MG TAB.ER.24H PO SCH (09:00)
== END 2020-07-02 10:32 | disposition home or self-care (01) | DRG 164 ==
LOC: SAMDAY 06:07 → ICNU 12:08 → 2NNU 06-24 15:00
PROVIDERS: ADMIT Thoracic Surgery (Cardiothoracic Vascular Surgery); ATTEND Thoracic Surgery (Cardiothoracic Vascular Surgery)